=== PATIENT | male | born 1990 | race Caucasian/White ===

== ENCOUNTER 2018-03-07 02:08 | Emergency (ER) | payer MEDICAID ==
--- NOTE | 2018-03-07 02:40 | EDPHY ---
H & P Stated Complaint: L 2ND DIGIT LAC/GLASS Time Seen by Provider: 03/07/18 02:23 HPI/ROS: HPI The patient presents with left 2nd digit laceration which occurred about 1 hr prior to presentation when he was using an art tool which hit his finger and then had bleeding immediately. He does not have any decreased sensation. Pain is mild. His tetanus vaccine is up-to-date. REVIEW OF SYSTEMS Constitutional: No fever, no chills. Skin: No rashes. Neurological: No headache. PMHx: Healthy PHYSICAL General Appearance: Alert, no distress Eyes: Pupils equal and round no pallor or injection ENT, Mouth: Mucous membranes moist Respiratory: Breathing comfortably Neurological: A&O, moves all extremities Skin: Warm and dry, no rashes Musculoskeletal: Neck is supple non tender Extremities: Left index finger with 1.5cm transverse laceration at the tip, not involving nail bed Psychiatric: Patient is oriented X 3, there is no agitation Source: Patient Exam Limitations: No limitations - Personal History Current Tetanus Diphtheria and Acellular Pertussis (TDAP): Yes - Medical/Surgical History Hx Asthma: No Hx Chronic Respiratory Disease: No Hx Diabetes: No Hx Cardiac Disease: No Hx Renal Disease: No Hx Cirrhosis: No Hx Alcoholism: No Hx HIV/AIDS: No Hx Splenectomy or Spleen Trauma: No Other PMH: LYME DX - Social History Smoking Status: Never smoked Constitutional: Initial Vital Signs Temperature (C) 36.8 C 03/07/18 02:14 Heart Rate 68 03/07/18 02:14 Respiratory Rate 16 03/07/18 02:14 Blood Pressure 133/103 H 03/07/18 02:14 O2 Sat (%) 96 03/07/18 02:14 O2 Delivery Mode Room Air Allergies/Adverse Reactions: No Known Allergies Allergy (Unverified 03/07/18 02:13) Home Medications: Medication Instructions Recorded Candace Pradhan 03/07/18 Medical Decision Making Procedures: LACERATION REPAIR Procedure: Laceration repair. Verbal consent was obtained from the patient. The linear 1.5 cm laceration on the left index finger was not anesthetized The wound was scrubbed, draped and explored to its base with a gloved finger. There were no deep structures involved. No tendon injury was identified. . The wound was repaired with Dermabond. The wound repair was simple. The procedure was performed by myself. Differential Diagnosis: This is a 27-year-old male who is sustained a superficial laceration to his finger tip without any nail bed involvement without any foreign body sensation. This wound was irrigated and then repaired by me. We discussed wound care and he will be discharged from the emergency department. Departure - Departure Disposition: Home, Routine, Self-Care Clinical Impression: Finger laceration Qualifiers: Encounter type: initial encounter Finger: index finger Damage to nail status: without damage Foreign body presence: without foreign body Laterality: left Qualified Code(s): S61.211A - Laceration without foreign body of left index finger without damage to nail, initial encounter Condition: Good Instructions: Skin Adhesive Care (ED) Additional Instructions: Please return to the emergency department if your worse in any way. The glue will fall off on its own. You should return for any redness, swelling, increased pain or drainage of your finger. Referrals: NONE *PRIMARY CARE P,. [Primary Care Provider] - As per Instructions
[2018-03-07 03:21] VITALS: BP 127/77
== END 2018-03-07 03:19 | disposition home or self-care (01) ==
PROC: 0HQGXZZ Repair Left Hand Skin, External Approach (ICD-10-PCS; principal; 2018-03-07)
DX: S61.211A Laceration without foreign body of left index finger without damage to nail, initial encounter (principal); W22.8XXA Striking against or struck by other objects, initial encounter